=== PATIENT | female | born 1990 ===

== ENCOUNTER 2021-12-10 20:52 | Emergency (ER) | payer SELFPAY ==
[~2021-12-10] VITALS: Ht 160 cm; Wt 59.0 kg
[2021-12-11] MEDS ORDERED: SULTRIDS PO (01:21)
== END 2021-12-11 01:40 | disposition home or self-care (01) ==
LOC: ER 20:52
DX: L02.416 Cutaneous abscess of left lower limb (principal); L03.116 Cellulitis of left lower limb; Y93.55 Activity, bike riding; V18.0XXA Pedal cycle driver injured in noncollision transport accident in nontraffic accident, initial encounter
CPT/HCPCS: 10060; 73562-LT; 99283-25; A9270